=== PATIENT | female | born 1985 | race Hispanic/Latino ===

== ENCOUNTER 2019-01-13 09:28 | Outpatient (CLI) | payer OTHER ==
--- NOTE | 2019-01-13 11:10 | ULT ---
US OB Complete STANDARD History: [Anatomy scan] Comparison: None. Findings: Real-time grayscale, color, and spectral analysis of the gravid uterus was performed transa bdominal approach. Single viable intrauterine with average ultrasound age 20 week 4 day with estimated date of delivery June 01, 2019. The placenta is posterior. Heart rate documented at 144 bpm. Biometry: Biparietal diameter: 4.75 cm, 20 week 3 day Head circumference: 17.88 cm, 20 week 3 day Abdominal circumference: 15.52 cm, 20 week 5 day Femur length: 3.11 cm, 19 week 5 day Visualized spine, lateral ventricles, cerebellum, four-chamber heart, three-vessel cord, stomach, kid neys are unremarkable. Amniotic fluid index measures 10.9 cm. Impression: Normal single viable intrauterine .
== END 2019-01-13 09:29 | disposition home or self-care (01) ==
LOC: BICULT 09:28
PROVIDERS: ATTEND Family Medicine
DX: O09.92 Supervision of high risk pregnancy, unspecified, second trimester (principal); Z3A.20 20 weeks gestation of pregnancy
CPT/HCPCS: 76805

== ENCOUNTER 2019-01-16 18:56 | Day surgery (SDC) | payer OTHER ==
[2019-01-16 19:35] VITALS: BMI 29.8
[2019-01-16 20:03] LABS: Bilirubin Negative (Negative); Blood, Urine Negative (Negative); Clarity CLEAR (Clear); Glucose, Urine (Dipstick) Negative (Negative); Leukocyte Negative (Negative); Nitrite Negative (Negative); Protein, Urine (Dipstick) Negative (Neg-Trace); Specific Gravity, Urine 1.004 (1.002-1.036); Urobilinogen 0.2 mg/dL (0.2-1.0); pH, Urine 6.5 (5.0-9.0)
[2019-01-16 20:28] LABS: #Lymphocytes 1.5 thou/uL (1.20-3.40); #Monocytes 0.4 thou/uL (0.11-0.59); %Basophils 0.2 % (0.0-1.0); %Eosinophils 0.4 % (0.0-10.0); %Lymphocytes 16.5 % (21.0-51.0); %Monocytes 4.2 % (0.0-10.0); %Neutrophils 78.6 % (42.0-75.0); Hemoglobin 10.6 g/dL (12.0-16.0); Mean Corpuscular HGB CONC 34.6 g/dL (32.0-36.0); Mean Corpuscular Hemoglobin 31.6 pg (27.0-31.0); Mean Corpuscular Volume 91.2 fL (78.0-98.0); Mean Platelet Volume 6.5 fL (7.4-10.4); Platelet Count 332 thou/uL (130-400); Red Blood Cell (RBC) Count 3.35 mill/uL (4.20-5.40); White Blood Cell (WBC) Count 8.8 thou/uL (4.8-10.8)
[2019-01-16 20:50] LABS: ALT (SGPT) 11 U/L (8-55); AST (SGOT) 9 U/L (5-34); Albumin 3.4 g/dL (3.5-5.0); Alkaline Phosphatase 59 U/L (40-150); Anion Gap 13 mmol/L (10-20); BUN (Urea Nitrogen) 5 mg/dL (7.0-18.7); Bilirubin, Total 0.2 mg/dL (0.2-1.2); Calc. Creatinine Clearance 172 mL/min (70-130); Calcium 9.4 mg/dL (7.8-10.44); Carbon Dioxide 22 mmol/L (22-29); Chloride 104 mmol/L (98-107); Estimated GFR-MDRD Greater than 90; Globulin 3.4 g/dL (2.4-3.5); Glucose 117 mg/dL (70-105); Potassium 3.8 mmol/L (3.5-5.1); Protein, Total 6.8 g/dL (6.0-8.3); Sodium 135 mmol/L (136-145)
--- NOTE | 2019-01-17 04:56 | SS ---
DATE OF ADMISSION: 01/16/2019 DATE OF DISCHARGE: 01/16/2019 REGULAR PHYSICIAN: Yassine Abel MD. EVALUATING PHYSICIAN: Carter Richards MD. CHIEF COMPLAINT: Upper back pain. HISTORY OF PRESENT ILLNESS: Ms. Acevedo is a 33-year-old G4, P3-0-0-3 with an estimated date of confinement of 06/01/2019, who presents complaining of pain extending into her flanks over the last 4 days. She denies fever, chills, or vomiting. She does report occasional nausea. She denies bleeding or loss of fluid. She states she has recently been treated for UTI and completed a course of amoxicillin approximately a week ago. Her care has been with Dr. Abel. PAST OBSTETRICAL HISTORY: Includes 3 previous sections with a history of preeclampsia. PAST MEDICAL HISTORY: Rheumatoid arthritis. PAST SURGICAL HISTORY: x3. CURRENT MEDICATIONS: 1. vitamins. 2. One baby aspirin a day. 3. Prednisone 10 mg a day. ALLERGIES: NO KNOWN ALLERGIES. SOCIAL HISTORY: Denies tobacco, alcohol, or drug use. REVIEW OF SYSTEMS: Positive for nausea. Denies fever, chills, change in bowel or bladder habits, vaginal bleeding or ruptured membranes. PHYSICAL EXAMINATION: VITAL SIGNS: Blood pressure is 120/75, pulse is 80, respirations 18, temperature 98.9. GENERAL: She is pleasant, in no acute distress. ABDOMEN: Soft, nontender, and gravid. PELVIC: Deferred. heart tones were positive. No significant uterine activity is seen. LABORATORY DATA: White count 8.8, hemoglobin and hematocrit 10.6 and 30.6 with a platelet count of 332,000. Chemistries; sodium 135, potassium 3.8, chloride 104, carbon dioxide 22, creatinine 0.57, glucose 117, bilirubin 0.2, AST and ALT are 9 and 11 respectively. Her urinalysis returns clear with a specific gravity of 1.004 with negative protein, negative glucose, negative ketones, negative blood, negative nitrites, negative bilirubin, and negative leukocyte esterase. ASSESSMENT: 1. 20 and 4/7th week intrauterine . 2. No evidence of urinary tract infection or pyelonephritis. PLAN: The patient will be dismissed to home. She was told to keep herself well hydrated at home and she can take Tylenol for any discomfort that she has. She states that she has a followup with Dr. Abel in the next 2 weeks. Job ID: [id number]
== END 2019-01-16 21:10 | disposition home or self-care (01) ==
LOC: L&D/OP 18:56
PROVIDERS: ATTEND Family Medicine
DX: O99.89 Other specified diseases and conditions complicating pregnancy, childbirth and the puerperium (principal); M54.9 Dorsalgia, unspecified; M06.9 Rheumatoid arthritis, unspecified; Z3A.20 20 weeks gestation of pregnancy; Z79.82 Long term (current) use of aspirin; Z79.52 Long term (current) use of systemic steroids
CPT/HCPCS: 36415; 80053; 81003; 85025; 99283

== ENCOUNTER 2019-05-21 22:37 | Day surgery (SDC) | payer OTHER ==
[2019-05-21] MEDS ORDERED: hydrALAZINE 20 MG/ML VIAL SLOW IVP PRN (23:11)
--- NOTE | 2019-05-21 23:13 | PDOC.LDHP ---
Labor and Delivery H&P Chief complaint: other (HAMLIN and nausea) HPI: Patient of Dr Abel Here for HAMLIN and some nausea 34 yo CS x 3 at 38 weeks 3 days, on ASA and prednisone, with HX RA, here for HAMLIN and nausea. No LOF, no CTX. She has A1DM Review of Systems: complete ROS completed and as per HPI Current gestational age (weeks): 38 (3 days) Dating criteria: last menstrual period Grav: 5 Para: 3 OB History Details: CS x3 Current complications: gestational diabetes (A1), other (RA on prednisone) Abnormal US findings: No Current medications: pre-[place] vitamins, other (ASA, prednisone) Previous surgical history: low tranverse CS (3) Allergies/Adverse Reactions: Allergies Allergy/AdvReac Type Severity Reaction Status Date / Time No Known Allergies Allergy Verified 01/16/19 19:36 - Physical Exam Vital signs reviewed and normal: yes (135/63 69 98.7) General: NAD Heart: RRR Lungs: CTAB Abdomen: gravid Extremeties: no edema FHT: category 1 [place] contractions every: no - Assessment CS x3, A1DM, RA at 38 weeks 3 days, has CS scheduled Sunday...here for what sounds like migraine. BP under 140/90 - Plan Plan: observation in L&D (serial BPs, order CMP, CBC, tylenol for now)
[2019-05-21] MEDS ORDERED: Acetaminophen 500 MG TAB PO PRN (23:16)
--- NOTE | 2019-05-21 23:18 | PDOC.EVN ---
Event Note - Event Note Event Note: reglan and benadryl ordered for possible migrane
[2019-05-21 23:27] VITALS: BP 135/63; TEMP 98.7; BMI 34.2
[2019-05-21] MEDS ORDERED: diphenhydrAMINE 25 MG CAP PO SCH (23:30)
[2019-05-21] MEDS ORDERED: Metoclopramide 10 MG/10 ML UDCUP PO SCH (23:30)
--- NOTE | 2019-05-21 23:45 | PDOC.EVN ---
Event Note - Event Note Event Note: repeat BP was 120/80s
[2019-05-21 23:53] LABS: #Eosinphils 0.1 thou/uL (0.0-0.7); #Lymphocytes 1.4 thou/uL (1.20-3.40); #Monocytes 0.3 thou/uL (0.11-0.59); #Neutrophils 4.2 thou/uL (1.40-6.50); %Basophils 0.3 % (0.0-1.0); %Eosinophils 1.3 % (0.0-10.0); %Lymphocytes 22.8 % (21.0-51.0); %Monocytes 4.9 % (0.0-10.0); %Neutrophils 70.8 % (42.0-75.0); Hemoglobin 11.5 g/dL (12.0-16.0); Mean Corpuscular HGB CONC 35.1 g/dL (32.0-36.0); Mean Corpuscular Hemoglobin 32.4 pg (27.0-31.0); Mean Corpuscular Volume 92.3 fL (78.0-98.0); Mean Platelet Volume 8.4 fL (7.4-10.4); Platelet Count 206 thou/uL (130-400); RBC Distribution Width 13.1 % (11.5-14.5); Red Blood Cell (RBC) Count 3.56 mill/uL (4.20-5.40)
[2019-05-22 00:25] LABS: ALT (SGPT) 14 U/L (8-55); AST (SGOT) 18 U/L (5-34); Alkaline Phosphatase 181 U/L (40-150); Anion Gap 12 mmol/L (10-20); BUN (Urea Nitrogen) 8 mg/dL (7.0-18.7); Bilirubin, Total 0.2 mg/dL (0.2-1.2); Calc. Creatinine Clearance 171 mL/min (70-130); Calcium 9.1 mg/dL (7.8-10.44); Carbon Dioxide 22 mmol/L (22-29); Chloride 105 mmol/L (98-107); Estimated GFR-MDRD Greater than 90; Globulin 3.1 g/dL (2.4-3.5); Glucose 93 mg/dL (70-105); Potassium 3.8 mmol/L (3.5-5.1); Protein, Total 6.1 g/dL (6.0-8.3); Sodium 135 mmol/L (136-145)
--- NOTE | 2019-05-22 00:30 | PDOC.EVN ---
Event Note - Event Note Event Note: labs ok bps ok ok for outpatient care
== END 2019-05-22 00:30 | disposition home or self-care (01) ==
LOC: L&D/OP 22:37
PROVIDERS: ATTEND Family Medicine
DX: O99.89 Other specified diseases and conditions complicating pregnancy, childbirth and the puerperium (principal); R51 Headache; R11.0 Nausea; M06.9 Rheumatoid arthritis, unspecified; O24.410 Gestational diabetes mellitus in pregnancy, diet controlled; Z3A.38 38 weeks gestation of pregnancy; Z79.899 Other long term (current) drug therapy
CPT/HCPCS: 36415; 80053; 85025; Q0163

== ENCOUNTER 2019-05-26 10:49 | Inpatient (IN) | payer MEDICAID, OTHER, SELFPAY ==
[2019-05-26 11:27] VITALS: BMI 32.1
[2019-05-26] MEDS ORDERED: Oxytocin 10 UNITS/ML VIAL ONE ×3 (11:59→14:06)
[2019-05-26] MEDS ORDERED: Ondansetron PF 4 MG/2 ML Vial ONE ×2 (11:59→13:38)
[2019-05-26] MEDS ORDERED: MORPHINE 5 MG/10 ML PF VIAL ONE ×2 (12:02→13:38)
[2019-05-26] MEDS ORDERED: Ondansetron PF 4 MG/2 ML Vial IVP PRN ×2 (12:13→15:35)
[2019-05-26] MEDS ORDERED: hydrALAZINE 20 MG/ML VIAL SLOW IVP PRN ×2 (12:13→15:35)
[2019-05-26] MEDS ORDERED: Butorphanol Tartrate 1 MG/ML VIAL SLOW IVP PRN (12:13)
[2019-05-26] MEDS ORDERED: Promethazine HCl 25 MG/ML VIAL IM PRN (12:13)
[2019-05-26] MEDS ORDERED: Lactated Ringer's 1,000 ML IV SCH (12:15)
[2019-05-26] MEDS ORDERED: Azithromycin 500 MG in Sodium Chloride 0.9% 250 ML 250 ML IVPB SCH (12:30)
[2019-05-26] MEDS ORDERED: Bicitra 30 ML UDCUP PO SCH (12:30)
[2019-05-26] MEDS ORDERED: CEFAZOLIN 2 GM in Premix Bag 1 BAG IVPB ONE (12:30)
[2019-05-26 13:07] LABS: Hemoglobin 12.2 g/dL (12.0-16.0); Mean Corpuscular HGB CONC 35.3 g/dL (32.0-36.0); Mean Corpuscular Volume 90.5 fL (78.0-98.0); Mean Platelet Volume 9.1 fL (7.4-10.4); Platelet Count 224 thou/uL (130-400); Red Blood Cell (RBC) Count 3.83 mill/uL (4.20-5.40); White Blood Cell (WBC) Count 4.8 thou/uL (4.8-10.8)
[2019-05-26 13:55] LABS: Syphilis Antibody Nonreactive (Nonreactive); Syphilis Antibody Index 0.13 S/CO (<1.00 Non-Reactive)
[2019-05-26] MEDS ORDERED: ePHEDrine/0.9% NaCl/PF SYRINGE 50 mg/10 ml ONE (13:55)
[2019-05-26 13:56] LABS: HBSAg Index 0.12 S/CO (0-0.99); Hep B Surf Ag Non-Reactive S/CO (NonReactive)
[2019-05-26] MEDS ORDERED: Glycopyrrolate 0.2 MG/ML 5 ML SYRINGE ONE ×2 (14:06→20:18)
--- NOTE | 2019-05-26 15:01 | PDOC.OPDEL ---
OB Operative/Delivery Note Delivery Dr/Surgeon: Colten Assist: Marion Pre-Delivery Diagnosis: scheduled section Anesthesia: epidural - Additional Findings/Plan Placenta delivered: spontaneous Repaired Obstetrical Laceration: none findings: low transverse hysterotomy without extension, normal uterus Estimated blood loss: 568cc Compilations/Other Findings: Procedure Note Date of Procedure: 05/26/19 Junior Analyst Surgeon: Joan Graham, PGY2 Attending Surgeon: Dr. Abel Procedure: Repeat low transverse caesarean section Preoperative Diagnosis: 1)Term intrauterine 2)Previous x3 3)AMA 4) Gestational Diabetes, diet controlled Postoperative Diagnosis: 1)same as above 2) same as above 3) same as above 4) same as above Anesthesia: spinal Indications: The patient is a 34 year old female at 39.1 weeks gestation who presents for a repeat scheduled . Procedure in Detail: After risks, benefits, and alternatives were explained to the patient, she gave informed consent. Pre-operative antibiotics included Cefazolin 2 gram IV and 500mg azithromycin. The patient was taken to the operating room and spinal anesthesia was initiated. She was placed in the supine position with a left tilt and prepped and draped in usual sterile fashion. A Pfannenstiel incision was made with a scalpel and carried down to the level of the fascia which was sharply nicked. The fascial cut was extended bilaterally with Corona sissors. The inferior and superior edges of the cut fascial edges were elevated with Jose Luis clamps and the underlying rectus muscles were sharply and bluntly with extending lateral excisions and dissected free. The recti were divided digitally and retracted manually. The peritoneum was adherent to the rectus and entered simultaneously. The rectus muscles were incised with the Bovie bilaterally for additional space. Bladder blade was placed. A low transverse score was made with the scalpel and the uterus was entered in the midline with the scalpel. Clear fluid was seen. The hysterotomy was extended manually. The infant was noted to be vertex and was easily delivered by fundal pressure. Mouth and nares were bulb suctioned. Cord clamped and cut and grossly normal female infant was handed to waiting nurse. Cord blood was obtained. Placenta was manually extracted, found to be intact with 3 vessel cord and discarded. The uterus was externalized and the endometrium was curetted with a dry lap. The bladder blade was replaced and the uterus was closed with a running locking 0-Vicryl suture. Two [id number] sutures of 0 -Vicryl were placed along the hysterotomy for hemostasis which was observed. The abdomen was irrigated with saline and suctioned free of clots. The uterus was internalized and the hysterotomy was again noted to be hemostatic. The recti muscles were repaired with 0-Vicryl. The fascia was closed with a running non-locking PDS suture. The subcutaneous tissue was irrigated, found to be hemostatic and was closed with 3 interrupted 3-0 vicryl sutures in the subdermal layer to reapproximate the skin, which was then closed with ledy. A pressure dressing was placed. All counts were correct x 3. The patient tolerated the procedure well and was taken to the recovery room in stable condition. Quantitative Blood Loss: 568cc Complications: None Specimens: Cord blood sent to lab for blood type Findings: Grossly normal female infant with Apgars of 8/9. Grossly normal placenta with 3 vessel cord discarded. Drains: Larios to gravity draining clear urine Post delivery plan: routine recovery
[2019-05-26] MEDS ORDERED: NS / Oxytocin 40 units/1000ml 1,000 ML ONE (15:17)
[2019-05-26] MEDS ORDERED: diphenhydrAMINE 25 MG CAP PO PRN (15:35)
[2019-05-26] MEDS ORDERED: NS / Oxytocin 40 units/1000ml 1,000 ML IV SCH (15:35)
[2019-05-26] MEDS ORDERED: Bisacodyl 10 MG SUPP PR PRN (15:35)
[2019-05-26] MEDS ORDERED: Meperidine HCl/PF 25 MG/ML VIAL IM PRN (15:35)
[2019-05-26] MEDS: Ketorolac Tromethamine 30 MG/ML VIAL IVP SCH ×2 (16:32→22:18)
[2019-05-26] MEDS ORDERED: ePHEDrine 50 MG/ML VIAL ONE (20:18)
[2019-05-26] MEDS ORDERED: Lanolin Ointment 7 GM TUBE TOP PRN (21:42)
[2019-05-26] MEDS: Docusate Calcium (SURFAK) 240 MG CAP PO SCH (22:21)
[2019-05-26] MEDS: Ferrous Sulfate 325 MG TAB PO SCH (22:21)
[2019-05-27] MEDS: HYDROcodone/Acetaminophen 5/325 mg Tablet PO PRN ×4 (02:16→22:18)
[2019-05-27] MEDS: Ketorolac Tromethamine 30 MG/ML VIAL IVP SCH (04:30)
[2019-05-27 06:41] LABS: Hemoglobin 10.4 g/dL (12.0-16.0); Mean Corpuscular Hemoglobin 32.6 pg (27.0-31.0); Mean Corpuscular Volume 93.1 fL (78.0-98.0); Mean Platelet Volume 7.7 fL (7.4-10.4); Platelet Count 170 thou/uL (130-400); RBC Distribution Width 12.8 % (11.5-14.5); Red Blood Cell (RBC) Count 3.18 mill/uL (4.20-5.40); White Blood Cell (WBC) Count 4.6 thou/uL (4.8-10.8)
[2019-05-27] MEDS: Docusate Calcium (SURFAK) 240 MG CAP PO SCH ×2 (08:06→21:50)
[2019-05-27] MEDS: Prenatal Vitamin 1 TAB PO SCH (08:06)
[2019-05-27] MEDS: Ferrous Sulfate 325 MG TAB PO SCH ×2 (08:07→19:30)
[2019-05-27] MEDS ORDERED: Adacel (T-DAP) 0.5 ML SYRINGE IM ONE (09:00)
[2019-05-27] MEDS: Ibuprofen 800 MG TAB PO SCH ×2 (13:40→21:50)
[2019-05-27] MEDS: cloNIDine 0.1 MG TAB PO PRN (15:59)
[2019-05-27] MEDS ORDERED: predniSONE 5 MG TAB PO SCH (23:30)
[2019-05-28] MEDS: cloNIDine 0.1 MG TAB PO PRN ×2 (00:46→16:55)
[2019-05-28] MEDS: HYDROcodone/Acetaminophen 5/325 mg Tablet PO PRN (04:41)
[2019-05-28] MEDS: Ibuprofen 800 MG TAB PO SCH ×3 (06:04→21:18)
[2019-05-28] MEDS: Ferrous Sulfate 325 MG TAB PO SCH ×2 (07:33→22:08)
[2019-05-28] MEDS: Prenatal Vitamin 1 TAB PO SCH (09:51)
[2019-05-28] MEDS: HYDROcodone/Acetaminophen 7.5/325 mg Tablet PO PRN ×3 (09:51→18:29)
[2019-05-28] MEDS: Docusate Calcium (SURFAK) 240 MG CAP PO SCH ×2 (09:51→21:19)
[2019-05-28] MEDS: Simethicone Chewable 80 MG TAB PO PRN (16:55)
[2019-05-28] MEDS: predniSONE 5 MG TAB PO SCH (21:19)
[2019-05-29] MEDS: HYDROcodone/Acetaminophen 7.5/325 mg Tablet PO PRN ×4 (00:05→13:00)
[2019-05-29] MEDS: Simethicone Chewable 80 MG TAB PO PRN ×2 (00:06→06:17)
[2019-05-29] MEDS: cloNIDine 0.1 MG TAB PO PRN ×3 (00:46→21:08)
[2019-05-29] MEDS: Ibuprofen 800 MG TAB PO SCH ×3 (06:18→21:09)
[2019-05-29] MEDS: Ferrous Sulfate 325 MG TAB PO SCH (07:40)
[2019-05-29] MEDS: Prenatal Vitamin 1 TAB PO SCH (09:41)
[2019-05-29] MEDS: Docusate Calcium (SURFAK) 240 MG CAP PO SCH ×2 (09:41→21:09)
[2019-05-29] MEDS ORDERED: HYDROcodone/Acetaminophen 5/325 mg Tablet PO PRN (17:43)
[2019-05-29] MEDS: HYDROcodone/Acetaminophen 5/325 mg Tablet PO PRN (18:17)
[2019-05-29] MEDS ORDERED: Milk Of Magnesia 30 ML UDCUP PO SCH (21:00)
[2019-05-29] MEDS: predniSONE 5 MG TAB PO SCH (21:08)
[2019-05-30] MEDS: Simethicone Chewable 80 MG TAB PO PRN (00:11)
[2019-05-30] MEDS: Ferrous Sulfate 325 MG TAB PO SCH ×2 (00:53→09:15)
[2019-05-30] MEDS: Ibuprofen 800 MG TAB PO SCH ×2 (05:33→14:30)
[2019-05-30] MEDS: HYDROcodone/Acetaminophen 5/325 mg Tablet PO PRN ×3 (05:33→17:50)
[2019-05-30 08:15] VITALS: TEMP 98.7
[2019-05-30] MEDS: Docusate Calcium (SURFAK) 240 MG CAP PO SCH (09:14)
[2019-05-30] MEDS: Prenatal Vitamin 1 TAB PO SCH (09:14)
[2019-05-30] MEDS: cloNIDine 0.1 MG TAB PO PRN ×2 (11:13→16:30)
[2019-05-30 17:51] VITALS: BP 155/84
== END 2019-05-30 18:40 | disposition home or self-care (01) | DRG 788 ==
LOC: L&D-LIB 10:49 → L&D 15:27 → 3SW 16:18
PROVIDERS: ADMIT Family Medicine; ATTEND Family Medicine
PROC: 10D00Z1 Extraction of Products of Conception, Low, Open Approach (ICD-10-PCS; principal; 2019-05-26)
DX: O34.211 Maternal care for low transverse scar from previous cesarean delivery (principal); O24.420 Gestational diabetes mellitus in childbirth, diet controlled; Z3A.39 39 weeks gestation of pregnancy; Z37.0 Single live birth
CPT/HCPCS: 36415; 51702; 85027; 86780; 86850; 86900; 86901; 87340; J0360; J0456; J0690; J1885; J2274; J2405; J2590; J3490; J7050; J7512; Q0163

== ENCOUNTER 2020-11-24 15:16 | Outpatient (CLI) | payer OTHER | END 2020-11-24 15:17 | disposition home or self-care (01) | LOC: BICRAD 15:16 | PROVIDERS: ATTEND Family Medicine | DX: R06.02 Shortness of breath (principal) | CPT/HCPCS: 71046 ==

== ENCOUNTER 2022-08-24 11:35 | Outpatient (CLI) | payer OTHER | END 2022-08-24 11:36 | disposition home or self-care (01) | LOC: BICRAD 11:35 | PROVIDERS: ATTEND Family Medicine | DX: M25.562 Pain in left knee (principal); M54.9 Dorsalgia, unspecified | CPT/HCPCS: 72072; 72100 ==

== ENCOUNTER 2025-06-30 10:58 | Outpatient (CLI) | payer OTHER | END 2025-06-30 10:59 | disposition home or self-care (01) | LOC: ULT 10:58 | DX: N39.0 Urinary tract infection, site not specified (principal) | CPT/HCPCS: 76770 ==